=== PATIENT | male | born 1950 | race Caucasian/White ===

== ENCOUNTER → 2017-11-29 | Outpatient (CLI) | payer OTHER ==
[2017-11-29 12:05] LABS: Blood Urea Nitrogen 13 mg/dL (9-20)
--- NOTE | 2017-11-29 13:56 | CT ---
EXAMINATION TYPE: CT ChestAbdPelvis w con DATE OF EXAM: 11/29/2017 COMPARISON: 09/21/2017 HISTORY: Follow up of lung cancer. Treatment with radiation and chemotherapy in September 2017. CT DLP: 646.8 mGycm. Automated Exposure Control for Dose Reduction was Utilized. CONTRAST: CT scan of the thorax, abdomen and pelvis is performed with IV Contrast, patient injected with 100 mL of Isovue 300. FINDINGS: LUNGS: There is decrease in size of the previously identified centrally cavitary left upper lobe pulm onary mass abutting the pleural surface and extending into the left perihilar region. When measured i n a similar location to the prior exam on series 4 image 28 this measures up to 6.5 x 8.3 cm and prev iously measured up to 6.6 x 10.8 cm. Again there are innumerable adjacent satellite pulmonary nodules predominating within the left upper lobe extending from series 4 image 19 through the lingula 2 seri es 4 image 45. Solitary right lower lobe pulmonary nodule has decreased in size and series 4 image 46 retrospectively seen on series 5 image 105 on the prior exam. MEDIASTINUM: The degree of previously seen extensive left perihilar and mediastinal adenopathy has al so decreased from the prior with the largest conglomeration previously measured 3.1 x 2.5 cm on serie s 4 image 56 on the prior exam now measuring approximately 2.9 x 1.9 cm on series 3 image 26. Enlarge d subcarinal lymph node measures up to 2.3 cm. Moderate to severe three-vessel coronary artery calcif ications are noted. There is no evidence of cardiomegaly or pericardial effusion. LIVER/GB: There is redemonstration of multiple hepatic metastases. Given the phase of contrast on the prior exam and these were poorly defined in comparison and size is difficult to accurately measure. The largest on today's examination measures up to 2.1 x 2.3 cm in segment 7 on series 3 image 58. PANCREAS: No significant abnormality is seen. SPLEEN: No significant abnormality is seen. ADRENALS: A left adrenal gland mass has also slightly decreased in size previously measured up to 8.7 cm and currently measuring up to 7.8 x 6.4 cm. Right adrenal gland thickening without discrete measu rable nodule is also again seen. KIDNEYS: Left upper pole renal cyst measures 1.3 cm. No hydronephrosis or nephrolithiasis. Too small to accurately characterize probable right anterior cortical midpole renal cyst is also present. BOWEL: Descending duodenal lipoma is incidentally noted inferior to the uncinate process. GENITAL ORGANS: No gross abnormality seen. LYMPH NODES: No greater than 1cm abdominal or pelvic lymph nodes are appreciated. OSSEOUS STRUCTURES: Sclerotic right ischial lesion measures 4 mm. This could represent a benign bone island. Moderate degenerative changes of the femoral acetabular joints are seen as well as likely deg enerative sclerosis of the sacroiliac joints. Prior healed left posterior lateral rib fractures are n oted. Sclerotic foci of the T11 and T9 vertebral bodies are most likely degenerative as they're cory guous with the endplates and unchanged from the prior. OTHER: There is fusiform ectasia of the infrarenal abdominal aorta measuring up to 2.6 x 2.8 cm with severe calcific and noncalcific atheromatous plaquing. IMPRESSION: Findings indicating overall response to treatment with decreased size in the primary left upper lobe cavitary pulmonary mass although there is persistence of innumerable satellite pulmonary nodules, dec rease in size of the left adrenal gland mass, improvement in mediastinal adenopathy and decrease in s ize of the solitary right pulmonary nodule. Multiple metastatic hepatic lesions are also seen althoug h comparison in size and number with the prior exam is difficult due to phase of contrast on the exam of 09/21/2017.
== END | disposition home or self-care (01) ==
LOC: RADCTMAIN 10:49
PROVIDERS: ATTEND Internal Medicine Hematology & Oncology
DX: C34.32 Malignant neoplasm of lower lobe, left bronchus or lung (principal); Z88.8 Allergy status to other drugs, medicaments and biological substances
CPT/HCPCS: 82565; 84520; 71260; 74177; 36415; Q9967

== ENCOUNTER → 2017-12-07 | Outpatient (CLI) | payer OTHER ==
--- NOTE | 2017-12-07 12:56 | FL ---
EXAMINATION TYPE: FL barium swallow w video DATE OF EXAM: 12/07/2017 MODIFIED SWALLOW / DEGLUTITION STUDY CLINICAL HISTORY: Progressively worsening dysphagia. History of pneumonia and chemotherapy for lung c ancer. Weight loss. TECHNIQUE: Deglutition study is performed utilizing thin liquid barium, honey and nectar thick liqui d barium, barium thick applesauce, and barium coated cracker. 57 sec fluoroscopy time was utilized wi th 0 images saved as this was video recorded. COMPARISON: None. FINDINGS: The oral and pharyngeal phases show satisfactory initiation and propagation with all modali ties tested. Normal mastication is seen with solid modalities tested. Repeat penetration was apprec iated with the thin barium consistency, improved with the chin tuck maneuver. There is no evidence of penetration or aspiration with the remaining modalities tested. No significant pharyngeal residue w as appreciated. IMPRESSION: Persistent penetration with the thin liquid consistency improved with the chin tuck maneu yeny. Please refer to speech therapist notes for further details if necessary.
== END | disposition home or self-care (01) ==
LOC: RADFLMAIN 11:17
PROVIDERS: ATTEND Otolaryngology
DX: R13.10 Dysphagia, unspecified (principal)
CPT/HCPCS: 74230

== ENCOUNTER 2018-01-24 21:31 | Inpatient (IN) | payer OTHER, MEDICARE ==
[2018-01-24] MEDS ORDERED: SODIUM CHLORIDE 0.9% 1,000 ML IV ONE (21:42)
--- NOTE | 2018-01-24 21:45 | ED ---
Altered Mental Status HPI - General Chief Complaint: Altered Mental Status Stated Complaint: LETHARGIC Time Seen by Provider: 01/24/18 21:31 Source: patient, family, EMS, RN notes reviewed Mode of arrival: EMS Limitations: no limitations - History of Present Illness Initial Comments: This is a 67-year-old with a history of stage IV lung cancer whose last chemo treatment was the first of this month was brought in by EMS after a call for confusion and altered mental status. He is found have a glucose of 40 he was given oral glucose by first responders repeat glucose is 120 is also noted have a pulse ox of 70 and 80% on room air he did not tolerate an updraft very well. He is feeling better he states MD Complaint: altered mental status, confusion, decreased responsiveness - Related Data Home Medications Medication Instructions Recorded Confirmed Albuterol Sulfate [Proair Hfa] 1 - 2 puff INHALATION RT-Q6H PRN 09/21/17 Aspirin 81 mg PO DAILY 09/21/17 01/24/18 Cholecalciferol [Vitamin D3] 1,000 unit PO DAILY 09/21/17 01/24/18 HYDROcodone/APAP 10-325MG [[place] 1 tab PO Q4H PRN 09/21/17 01/24/18 10-325] Meloxicam [Mobic] 15 mg PO DAILY PRN 09/21/17 01/24/18 Nitroglycerin Sl Tabs [Nitrostat] 0.4 mg SUBLINGUAL Q5M PRN 09/21/17 01/24/18 oxyCODONE-APAP 5-325MG [Percocet 1 tab PO Q4HR PRN 01/24/18 01/24/18 5-325 mg] Allergies Allergy/AdvReac Type Severity Reaction Status Date / Time No Known Allergies Allergy Verified 01/24/18 22:27 Review of Systems ROS Statement: Those systems with pertinent positive or pertinent negative responses have been documented in the HPI. ROS Other: All systems not noted in ROS Statement are negative. Past Medical History Past Medical History: Coronary Artery Disease (CAD), Cancer, Chest Pain / Angina , GERD/Reflux, Hyperlipidemia Additional Past Medical History / Comment(s): L lung cancer with metastsis- received last radiation tx today, constipation. History of Any Multi-Drug Resistant Organisms: None Reported Past Surgical History: Heart Catheterization With Stent, Tonsillectomy Additional Past Surgical History / Comment(s): L lung bx x 2, bilateral inguinal hernia repairs, bilateral cataract removals with lens. Past Anesthesia/Blood Transfusion Reactions: No Reported Reaction Date of Last Stent Placement:: 2002 Past Psychological History: No Psychological Hx Reported Smoking Status: Current every day smoker Past Alcohol Use History: Occasional Past Drug Use History: None Reported - Past Family History Father Family Medical History: Diabetes Mellitus Mother Additional Family Medical History / Comment(s): Mother had lupus. General Exam - General Exam Comments Initial Comments: This is a well-developed asthenic appearing male who is awake and alert Limitations: no limitations General appearance: alert, in no apparent distress Head exam: Present: atraumatic, normocephalic, normal inspection Eye exam: Present: normal appearance, PERRL, EOMI. Absent: scleral icterus, conjunctival injection, periorbital swelling ENT exam: Present: mucous membranes dry Neck exam: Present: normal inspection. Absent: tenderness, meningismus, lymphadenopathy Respiratory exam: Present: rhonchi, decreased breath sounds. Absent: respiratory distress, wheezes, rales, stridor Cardiovascular Exam: Present: regular rate, normal rhythm, normal heart sounds. Absent: systolic murmur, diastolic murmur, rubs, gallop, clicks GI/Abdominal exam: Present: soft, normal bowel sounds. Absent: distended, tenderness, guarding, rebound, rigid Extremities exam: Present: normal inspection, full ROM, normal capillary refill. Absent: tenderness, pedal edema, joint swelling, calf tenderness Back exam: Present: normal inspection Neurological exam: Present: alert, oriented X3, CN II-XII intact Psychiatric exam: Present: normal affect, normal mood Skin exam: Present: warm, dry, intact, normal color. Absent: rash Course Vital Signs 01/24/18 01/24/18 01/24/18 21:33 21:58 23:40 Temperature 99.1 F Pulse Rate 85 92 Respiratory 26 H 24 Rate Blood Pressure 112/58 101/59 O2 Sat by Pulse 95 97 Oximetry - Reevaluation(s) Reevaluation #1: 01/25/18 00:30 The current EKG was compared with previous EKGs dated 09/21/17 and also 09/22/17 similar configuration as are noted. Medical Decision Making - Medical Decision Making I did reevaluate patient is feeling somewhat better though he is very tired. I had a discussion with patient family members regarding the findings patient be admitted the patient does have low-grade temperature it is unclear whether this is secondary to an infectious process versus tumor. Patient will be admitted with consultation by both cardiology and oncology. - Lab Data Result diagrams: 01/24/18 21:50 01/24/18 21:50 Lab Results 01/24/18 01/24/18 01/24/18 Range/Units 21:49 21:50 21:50 WBC 3.3 L (3.8-10.6) k/uL RBC 2.56 L (4.30-5.90) m/uL Hgb 8.2 L (13.0-17.5) gm/dL Hct 24.4 L (39.0-53.0) % MCV 95.2 (80.0-100.0) fL MCH 32.0 (25.0-35.0) pg MCHC 33.5 (31.0-37.0) g/dL RDW 21.6 H (11.5-15.5) % Plt Count 202 (150-450) k/uL Neutrophils % (Manual) 51 % Band Neutrophils % 12 % Lymphocytes % (Manual) 33 % Monocytes % (Manual) 5 % Neutrophils # (Manual) 2.00 (1.3-7.7) k/uL Lymphocytes # (Manual) 1.09 (1.0-4.8) k/uL Monocytes # (Manual) 0.17 (0-1.0) k/uL Nucleated RBCs 0 (0-0) /100 WBC Manual Slide Review Performed Reactive Lymphocytes Present Hypochromasia Slight Poikilocytosis Slight Anisocytosis Moderate Macrocytosis Slight PT (9.0-12.0) sec INR (<1.2) APTT (22.0-30.0) sec Sodium (137-145) mmol/L Potassium (3.5-5.1) mmol/L Chloride (98-107) mmol/L Carbon Dioxide (22-30) mmol/L Anion Gap mmol/L BUN (9-20) mg/dL Creatinine (0.66-1.25) mg/dL Est GFR (CKD-EPI)AfAm (>60 ml/min/1.73 sqM) Est GFR (CKD-EPI)NonAf (>60 ml/min/1.73 sqM) Glucose (74-99) mg/dL POC Glucose (mg/dL) 94 (75-99) mg/dL POC Glu Certification Engineer ID [place], Flex Calcium (8.4-10.2) mg/dL Total Bilirubin (0.2-1.3) mg/dL AST (17-59) U/L ALT (21-72) U/L Alkaline Phosphatase (38-126) U/L Total Creatine Kinase 203 H (55-170) U/L CK-MB (CK-2) 1.9 (0.0-2.4) ng/mL CK-MB (CK-2) Rel Index 0.9 Troponin I 0.198 H* (0.000-0.034) ng/mL Total Protein (6.3-8.2) g/dL Albumin (3.5-5.0) g/dL 01/24/18 01/24/18 Range/Units 21:50 21:50 WBC (3.8-10.6) k/uL RBC (4.30-5.90) m/uL Hgb (13.0-17.5) gm/dL Hct (39.0-53.0) % MCV (80.0-100.0) fL MCH (25.0-35.0) pg MCHC (31.0-37.0) g/dL RDW (11.5-15.5) % Plt Count (150-450) k/uL Neutrophils % (Manual) % Band Neutrophils % % Lymphocytes % (Manual) % Monocytes % (Manual) % Neutrophils # (Manual) (1.3-7.7) k/uL Lymphocytes # (Manual) (1.0-4.8) k/uL Monocytes # (Manual) (0-1.0) k/uL Nucleated RBCs (0-0) /100 WBC Manual Slide Review Reactive Lymphocytes Hypochromasia Poikilocytosis Anisocytosis Macrocytosis PT 11.4 (9.0-12.0) sec INR 1.2 H (<1.2) APTT 20.7 L (22.0-30.0) sec Sodium 131 L (137-145) mmol/L Potassium 4.0 (3.5-5.1) mmol/L Chloride 90 L (98-107) mmol/L Carbon Dioxide 30 (22-30) mmol/L Anion Gap 11 mmol/L BUN 28 H (9-20) mg/dL Creatinine 0.60 L (0.66-1.25) mg/dL Est GFR (CKD-EPI)AfAm >90 (>60 ml/min/1.73 sqM) Est GFR (CKD-EPI)NonAf >90 (>60 ml/min/1.73 sqM) Glucose 84 (74-99) mg/dL POC Glucose (mg/dL) (75-99) mg/dL POC Glu Certification Engineer ID Calcium 10.6 H (8.4-10.2) mg/dL Total Bilirubin 0.5 (0.2-1.3) mg/dL AST 71 H (17-59) U/L ALT 36 (21-72) U/L Alkaline Phosphatase 166 H (38-126) U/L Total Creatine Kinase (55-170) U/L CK-MB (CK-2) (0.0-2.4) ng/mL CK-MB (CK-2) Rel Index Troponin I (0.000-0.034) ng/mL Total Protein 5.6 L (6.3-8.2) g/dL Albumin 2.8 L (3.5-5.0) g/dL - EKG Data -: EKG Interpreted by Me EKG shows normal: sinus rhythm (Sinus tachycardia rate 105 TN interval 118 QRS duration 150 QT since QTC 360/486 red bundle-branch block pattern nonspecific inferior changes) - Radiology Data Radiology results: report reviewed (I did review the imaging and reports increased left-sided pneumonic consolidation consistent with progression of tumor), image reviewed Critical Care Time Critical Care Time: Yes Critical Care Time: 37 minutes of critical care time which includes initial monitoring of the EMS run and discussed with paramedics history physical labs x-rays several reevaluation the patient discussed with patient's family and several occasions review of old charting documentation of the above Disposition Clinical Impression: Hypoglycemia, Lung cancer, lower lobe, Febrile illness, acute, Confusional state, Hypoxemia, Non-STEMI (non-ST elevated myocardial infarction) Disposition: ADMITTED IP TO THIS HOSP Condition: Stable Referrals: [facility],Clinic [Primary Care Provider] - 1-2 days
[2018-01-24 21:50] LABS: Glucose,Whole Blood 94 mg/dL (75-99)
[2018-01-24 22:17] LABS: ALT 36 U/L (21-72); AST 71 U/L (17-59); Albumin 2.8 g/dL (3.5-5.0); Alkaline Phosphatase 166 U/L (38-126); Anion Gap 11 mmol/L; Blood Urea Nitrogen 28 mg/dL (9-20); Calcium 10.6 mg/dL (8.4-10.2); Carbon Dioxide 30 mmol/L (22-30); Chloride 90 mmol/L (98-107); Glucose 84 mg/dL (74-99); Sodium 131 mmol/L (137-145); Total Bilirubin 0.5 mg/dL (0.2-1.3); Total Protein 5.6 g/dL (6.3-8.2)
[2018-01-24 22:22] LABS: INR 1.2 (<1.2); Prothrombin Time 11.4 sec (9.0-12.0)
[2018-01-24 22:24] LABS: Anisocytosis Moderate; HCT 24.4 % (39.0-53.0); HGB 8.2 gm/dL (13.0-17.5); Hypochromasia Slight; MCHC 33.5 g/dL (31.0-37.0); MCV 95.2 fL (80.0-100.0); Macrocytosis Slight; Mean Platelet Volume 7.9; Platelet Count 202 k/uL (150-450); Poikilocytosis Slight; RBC 2.56 m/uL (4.30-5.90); RDW 21.6 % (11.5-15.5); WBC 3.3 k/uL (3.8-10.6)
[2018-01-24 22:34] LABS: Partial Thromboplastin Time 20.7 sec (22.0-30.0)
[2018-01-24 22:37] LABS: Creatine Kinase MB 1.9 ng/mL (0.0-2.4)
--- NOTE | 2018-01-24 22:38 | XR ---
EXAMINATION TYPE: XR chest 2V DATE OF EXAM: 01/24/2018 COMPARISON: September 21, 2017 HISTORY: Lung cancer TECHNIQUE: Frontal and lateral views of the chest are obtained. FINDINGS: There is 12 cm area of masslike consolidation involving the left upper lobe extending into the lingula left upper lobe. There is no heart failure. Right lung is clear. There is small infiltra te in the left lower lobe at the lung bases. Bony thorax is intact. There are chest leads. There are old left-sided healed rib fractures. IMPRESSION: Increasing left side pneumonic consolidation consistent with progression of tumor. No he art failure.
[2018-01-24 22:41] LABS: Troponin I 0.198 ng/mL (0.000-0.034)
[2018-01-24 22:54] LABS: Band Neutrophils % 12 %; Lymphocytes # (M) 1.09 k/uL (1.0-4.8); Monocytes # (M) 0.17 k/uL (0-1.0); Neutrophils % (M) 51 %; Nucleated Red Blood Cells 0 /100 WBC (0-0); Reactive Lymphocytes Present; Total Cells Counted 200
[2018-01-25] MEDS ORDERED: HEPARIN SODIUM,PORCINE 5,000 UNIT/ML 1 ML VIAL IV ONE (00:58)
[2018-01-25] MEDS ORDERED: NITROGLYCERIN SL TABS 0.4 MG TAB SUBLINGUAL PRN (00:58)
[2018-01-25] MEDS ORDERED: MELOXICAM 7.5 MG TAB PO PRN (01:03)
[2018-01-25] MEDS ORDERED: oxyCODONE-APAP 5-325MG 1 EACH TAB PO PRN (01:03)
[2018-01-25] MEDS ORDERED: HEPARIN SODIUM,PORCINE/D5W PMX 25,000 UNIT in DEXTROSE/WATER 1 500ML.BAG IV SCH (01:30)
[2018-01-25] MEDS: SODIUM CHLORIDE 0.9% 1,000 ML IV SCH ×4 (01:43→21:51)
[2018-01-25 01:56] LABS: Appearance,Urine Clear (Clear); Bilirubin,Urine Negative (Negative); Blood,Urine Negative (Negative); Color,Urine Yellow; Glucose,Urine (UA) Negative (Negative); Ketones,Urine Negative (Negative); Leukocyte Esterase,Urine Negative (Negative); Nitrite,Urine Negative (Negative); PH, Urine 5.5 (5.0-8.0); Protein,Urine Trace (Negative); Specific Gravity,Urine 1.015 (1.001-1.035); Urobilinogen,Urine <2.0 mg/dL (<2.0)
[2018-01-25] MEDS ORDERED: IPRATROPIUM-ALBUTEROL 3 ML NEB INHALATION SCH (04:00)
[2018-01-25 04:33] LABS: Creatine Kinase MB 1.5 ng/mL (0.0-2.4)
[2018-01-25 04:34] LABS: Troponin I 0.178 ng/mL (0.000-0.034)
[2018-01-25] MEDS: NITROGLYCERIN OINT 1 INCH/GM PACKET TOPICAL SCH ×3 (06:58→18:19)
[2018-01-25] MEDS: IPRATROPIUM-ALBUTEROL 3 ML NEB INHALATION SCH ×5 (07:29→19:46)
[2018-01-25] MEDS ORDERED: HEPARIN SODIUM,PORCINE 5,000 UNIT/ML 1 ML VIAL SQ STA (09:21)
[2018-01-25 09:33] LABS: Glucose,Whole Blood 101 mg/dL (75-99)
[2018-01-25] MEDS: CEFEPIME 2 GM in SODIUM CHLORIDE 0.9% 50 ML IVPB SCH ×3 (09:33→23:27)
[2018-01-25] MEDS: CHOLECALCIFEROL 1,000 UNIT TAB PO SCH (09:33)
[2018-01-25] MEDS ORDERED: HEPARIN SODIUM,PORCINE 5,000 UNIT/ML 1 ML VIAL IV STA (09:39)
[2018-01-25 10:11] LABS: Anisocytosis Moderate; HCT 20.8 % (39.0-53.0); Hypochromasia Slight; MCHC 32.8 g/dL (31.0-37.0); MCV 94.3 fL (80.0-100.0); Macrocytosis Slight; Mean Platelet Volume 8.1; Platelet Count 183 k/uL (150-450); Poikilocytosis Slight; RDW 20.8 % (11.5-15.5)
[2018-01-25 10:22] LABS: ALT 31 U/L (21-72); AST 50 U/L (17-59); Albumin 2.2 g/dL (3.5-5.0); Alkaline Phosphatase 125 U/L (38-126); Anion Gap 8 mmol/L; Blood Urea Nitrogen 19 mg/dL (9-20); Calcium 9.7 mg/dL (8.4-10.2); Carbon Dioxide 28 mmol/L (22-30); Chloride 96 mmol/L (98-107); Glucose 85 mg/dL (74-99); Potassium 3.1 mmol/L (3.5-5.1); Sodium 132 mmol/L (137-145); Total Bilirubin 0.3 mg/dL (0.2-1.3); Total Protein 4.6 g/dL (6.3-8.2)
[2018-01-25 10:25] LABS: WBC 1.6 k/uL (3.8-10.6)
[2018-01-25 10:26] LABS: HGB 6.8 gm/dL (13.0-17.5)
[2018-01-25 10:46] LABS: Creatine Kinase MB 0.7 ng/mL (0.0-2.4)
[2018-01-25 10:53] LABS: Troponin I 0.133 ng/mL (0.000-0.034)
[2018-01-25] MEDS ORDERED: ONDANSETRON 4 MG/2 ML VIAL IVP STA (11:30)
[2018-01-25] MEDS: HYDROcodone/APAP 10-325MG 1 EACH TAB PO PRN ×2 (12:01→18:31)
[2018-01-25 12:18] LABS: Band Neutrophils % 4 %; Lymphocytes # (M) 0.29 k/uL (1.0-4.8); Monocytes # (M) 0.46 k/uL (0-1.0); Neutrophils % (M) 49 %; Nucleated Red Blood Cells 0 /100 WBC (0-0); Total Cells Counted 100
[2018-01-25] MEDS ORDERED: SODIUM CHLORIDE 0.9% 800 ML IV ONE (14:05)
[2018-01-25 14:43] LABS: Glucose,Whole Blood 118 mg/dL (75-99)
--- NOTE | 2018-01-25 15:51 | P.CRDCN ---
History of Present Illness Consult date: 01/25/18 Requesting physician: Jossy Workman Reason for Consult (text): Abnormal troponins Chief complaint: Mental status change History of present illness: This is a 67-year-old gentleman who follows regularly at the [facility] in [place], he has known history of coronary artery disease with prior stenting in 2002, hypertension, hyperlipidemia, GERD, nicotine dependence, patient also has lung cancer for which he underwent radiation therapy, he was also undergoing chemotherapy, most recently he was told by his oncologist that no further chemotherapy would be administered as it does not seem to be taking effect. Patient was brought to the hospital via EMS with mental status changes. According to the daughter who gave me most of the history, she states that for the past day and a half prior to his admission she had been calling intact stenting him with no response. She went over to the house to find him sitting in a chair, she was unsure exactly of bilateral long he had been there, he was confused and had some mental status changes and for this reason she called EMS to have him brought here to the hospital. On EMS arrival, his blood sugar was in the 40 range, it was repeated after giving glucose and came up to 120. Pulse ox 70-80% on room air. The pressure on arrival here 112/58 with a heart rate in the 80s, 97% on 4 L of oxygen. EKG on arrival here showed a sinus tachycardia with a right bundle branch block pattern. Laboratory data, white blood cell count 3.3, 1.6 this morning, hemoglobin 8.2 on arrival, 6.8 this morning. Platelet count 183. Sodium 132, potassium 4.1 on arrival, 3.1 this morning. BUN 19, creatinine 0.45. Troponin 0.19, 0.17, 0.13. At the time of my examination, patient has just recently been placed into her room on 6 E., he is receiving a blood transfusion. He only intermittently is answering questions, he is quite irritated and generally feeling tired and not well. Patient was in the hospital in September of this year with a pneumonia, and echocardiogram with Doppler study was performed at that time which revealed an ejection fraction of 55-60%. Past Medical History Past Medical History: Coronary Artery Disease (CAD), Cancer, Chest Pain / Angina , GERD/Reflux, Hyperlipidemia, Pneumonia Additional Past Medical History / Comment(s): L lung cancer with metastsis- received radiation last 09/21/17 and is receiving chemo-last time 01/13/18, constipation, pt states hx of hyperlipidemia but recently taken of RX, constipation. History of Any Multi-Drug Resistant Organisms: None Reported Past Surgical History: Heart Catheterization With Stent, Tonsillectomy Additional Past Surgical History / Comment(s): L lung bx x 2, bilateral inguinal hernia repairs, bilateral cataract removals with lens. Past Anesthesia/Blood Transfusion Reactions: No Reported Reaction Date of Last Stent Placement:: 2002 Smoking Status: Current every day smoker - Past Family History Father Family Medical History: Diabetes Mellitus Mother Additional Family Medical History / Comment(s): Mother had lupus. Medications and Allergies Home Medications Medication Instructions Recorded Confirmed Type Albuterol Sulfate [Proair Hfa] 1 - 2 puff INHALATION RT-Q6H PRN 09/21/17 History Aspirin 81 mg PO DAILY 09/21/17 01/24/18 History Cholecalciferol [Vitamin D3] 1,000 unit PO DAILY 09/21/17 01/24/18 History HYDROcodone/APAP 10-325MG [[place] 1 tab PO Q4H PRN 09/21/17 01/24/18 History 10-325] Meloxicam [Mobic] 15 mg PO DAILY PRN 09/21/17 01/24/18 History Nitroglycerin Sl Tabs [Nitrostat] 0.4 mg SUBLINGUAL Q5M PRN 09/21/17 01/24/18 History oxyCODONE-APAP 5-325MG [Percocet 1 tab PO Q4HR PRN 01/24/18 01/24/18 History 5-325 mg] Allergies Allergy/AdvReac Type Severity Reaction Status Date / Time No Known Allergies Allergy Verified 01/24/18 22:27 Physical Exam Vitals: Vital Signs Temp Pulse Pulse Resp BP BP Pulse Ox 01/25/18 14:53 97.9 F 79 18 98/56 98 01/25/18 14:18 98.0 F 85 18 93/55 98 01/25/18 14:06 98 18 73/45 92 L 01/25/18 13:55 98.0 F 96 18 77/45 95 01/25/18 13:36 97.9 F 18 80/53 98 01/25/18 13:25 97.6 F 100 18 86/53 01/25/18 11:57 89 01/25/18 11:47 82 01/25/18 09:11 98.0 F 88 18 99/57 97 01/25/18 07:37 85 01/25/18 07:29 93 01/25/18 06:55 96 22 104/58 96 01/25/18 05:37 92 18 98/54 96 01/25/18 02:31 99 20 94/52 95 01/24/18 23:40 92 24 101/59 97 01/24/18 21:58 95 01/24/18 21:33 99.1 F 85 26 H 112/58 Intake and Output 01/25/18 01/25/18 01/25/18 06:59 14:59 22:59 Intake Total 177.028 Balance 177.028 Intake: Intake, IV Titration 177.028 Amount Heparin Sodium,Porcine/ 177.028 D5w Pmx 25,000 unit In Dextrose/Water 1 500ml. bag @ 12 UNITS/KG/HR 16. 32 mls/hr IV .Q24H [facility] Rx #:[id number] Blood Product 0 Rc As-1 Unit 0 [id number] PHYSICAL EXAMINATION: GENERAL: 67-year-old gentleman appears much older than his stated age , weak HEENT: Head is atraumatic, normocephalic. Pupils equal, round. Sclera anicteric. Conjunctiva are clear. Mucous membranes of the mouth are moist. Neck is supple. There is no elevated jugular venous pressure.] bruit is heard. HEART EXAMINATION: Heart S1, S2 normal. No murmur or gallop heard. CHEST EXAMINATION: Lungs reveal scattered coarse rhonchi and wheezing throughout. ABDOMEN: Soft, nontender. Bowel sounds are heard. No organomegaly noted. EXTREMITIES: 2+ peripheral pulses with no evidence of peripheral edema and no calf tenderness noted. NEUROLOGIC [patient is sleepy, arouses to verbal stimuli. Results 01/25/18 09:43 01/25/18 09:43 Cardiac Enzymes 01/24/18 01/24/18 01/25/18 Range/Units 21:50 21:50 03:39 AST 71 H (17-59) U/L CK-MB (CK-2) 1.9 1.5 (0.0-2.4) ng/mL Troponin I 0.198 H* 0.178 H* (0.000-0.034) ng/mL 01/25/18 01/25/18 Range/Units 09:43 09:43 AST 50 (17-59) U/L CK-MB (CK-2) 0.7 (0.0-2.4) ng/mL Troponin I 0.133 H* (0.000-0.034) ng/mL Coagulation 01/24/18 01/25/18 Range/Units 21:50 08:13 PT 11.4 (9.0-12.0) sec APTT 20.7 L 36.9 H (22.0-30.0) sec CBC 01/24/18 01/25/18 Range/Units 21:50 09:43 WBC 3.3 L 1.6 L* (3.8-10.6) k/uL RBC 2.56 L 2.20 L (4.30-5.90) m/uL Hgb 8.2 L 6.8 L* (13.0-17.5) gm/dL Hct 24.4 L 20.8 L (39.0-53.0) % Plt Count 202 183 (150-450) k/uL Comprehensive Metabolic Panel 01/24/18 01/25/18 Range/Units 21:50 09:43 Sodium 131 L 132 L (137-145) mmol/L Potassium 4.0 3.1 L (3.5-5.1) mmol/L Chloride 90 L 96 L (98-107) mmol/L Carbon Dioxide 30 28 (22-30) mmol/L BUN 28 H 19 (9-20) mg/dL Creatinine 0.60 L 0.45 L (0.66-1.25) mg/dL Glucose 84 85 (74-99) mg/dL Calcium 10.6 H 9.7 (8.4-10.2) mg/dL AST 71 H 50 (17-59) U/L ALT 36 31 (21-72) U/L Alkaline Phosphatase 166 H 125 (38-126) U/L Total Protein 5.6 L 4.6 L (6.3-8.2) g/dL Albumin 2.8 L 2.2 L (3.5-5.0) g/dL Current Medications Generic Name Dose Route Start Last Admin Trade Name Freq PRN Reason Stop Dose Admin Hydrocodone Bitart/Acetaminophen 1 each 01/25/18 01:03 01/25/18 12:01 [place] 10 PO 1 each Q4H PRN Administration MODERATE Pain Albuterol/Ipratropium 3 ml 01/25/18 08:00 01/25/18 15:31 Duoneb 0.5 Mg-3 Mg/3 Ml Soln INHALATION Not Given RT-QID [facility] Aspirin 325 mg 01/26/18 09:00 Aspirin PO DAILY [facility] Cholecalciferol 1,000 unit 01/25/18 09:00 01/25/18 09:33 Vitamin D3 PO 1,000 unit DAILY [facility] Administration Cefepime HCl 2 gm/ Sodium 50 mls @ 100 mls/hr 01/25/18 08:00 01/25/18 09:33 Chloride IVPB 100 mls/hr Q8HR IVONE Administration Sodium Chloride 1,000 mls @ 80 mls/hr 01/25/18 01:00 01/25/18 13:40 Saline 0.9% IV 80 mls/hr .[id number] [facility] Administration Meloxicam 15 mg 01/25/18 01:03 Mobic PO DAILY PRN MILD Pain Nitroglycerin 0.5 inch 01/25/18 06:00 01/25/18 13:40 Nitro-Bid Oint TOPICAL Not Given Q6HR [facility] Nitroglycerin 0.4 mg 01/25/18 00:58 Nitrostat SUBLINGUAL Q5M PRN Chest Pain Oxycodone/Acetaminophen 1 each 01/25/18 01:03 Percocet 5-325 PO Q4HR PRN SEVERE Pain Intake and Output 01/25/18 01/25/18 01/25/18 06:59 14:59 22:59 Intake Total 177.028 Balance 177.028 Intake: Intake, IV Titration 177.028 Amount Heparin Sodium,Porcine/ 177.028 D5w Pmx 25,000 unit In Dextrose/Water 1 500ml. bag @ 12 UNITS/KG/HR 16. 32 mls/hr IV .Q24H [facility] Rx #:[id number] Blood Product 0 Rc As-1 Unit 0 [id number] 01/25/18 09:43 01/25/18 09:43 EKG Interpretations (text) EKG shows sinus tachycardia with a right bundle branch block pattern. Nonspecific ST-T wave changes Assessment and Plan Plan: Assessment and plan #1 mental status changes #2 stage IV lung cancer, status post radiation, most recently patient's chemotherapy was discontinued by his oncologist. Patient did have a metastases noted to the liver and adrenal gland on most recent admission #3 anemia, hemoglobin down to 6.8, patient currently receiving a blood transfusion #4 known history of coronary artery disease with prior stent placement #5 nicotine dependence #6 hyperlipidemia #7 abnormal troponins, likely secondary to oxygen supply and demand mismatch Plan IV heparin has been discontinued, patient had a recent echo performed in September of this year which revealed an ejection fraction of 55-60%. He is currently receiving a blood transfusion. We will decrease the aspirin 81 mg daily, discontinue Nitropaste. Patient is currently not on beta dacia SG inhibitor because of hypotension, blood pressure down into the 70s in the emergency room prior to transfer.. Conservative medical therapy. Further recommendations to follow. DNP note has been reviewed, I agree with a documented findings and plan of care. Patient was seen and examined.
[2018-01-25 16:08] LABS: Glucose,Whole Blood 118 mg/dL (75-99)
--- NOTE | 2018-01-25 16:53 | P.HPIM ---
History of Present Illness 67-year-old pleasant gentleman came in with altered mental status patient is quite weak at home lying on the chair and family was concerned after he was unable to answer the phone because of which patient was brought into the hospital and patient is found to be hypoxic with saturations going to 80s patient is presently on Tuesday dysfunction does have history of COPD is not in COPD exacerbation patient denied any chest pain denied any nausea vomiting patient does have mild elevated troponin patient is quite anemic patient received chemotherapy earlier this month. Patient appears to have been receiving palliative chemotherapy for non-small cell lung cancer chest x-ray did not show any significant pneumonic process but may have postobstructive pneumonia and increasing mass in the left lower lung monge. There is no pulmonary edema. Patient is receiving blood transfusion his hemoglobin is presently 6.7 he denied any blood in the stools dark stools hemoptysis patient the platelet count is okay but the patient is leukopenic with white blood cell count going down from 3.3-1.6 doesn't have any fever patient is hyponatremic receiving IV fluids probably intravascular volume depletion hypokalemic potassium is being supplemented. Patient was hypotensive with blood pressure going down to 70s systolic received a couple units of boluses of IV fluids and is presently on 100 mL of normal saline. With blood pressure going up to 90 systolic. Patient is also receiving blood transfusion. Patient is not in COPD exacerbation although chest x-ray showed significant emphysema may have undiagnosed COPD patient doesn't use any oxygen at home but feels short of breath often at home since I cannot completely explain his shortness of breath I wanted to review CT angios the chest discussed his case with the oncology nurse practitioner and every came to the conclusion that he will need further workup with the CAT scans of the whole body this is a progression of his lung cancer because of that reason I'm ordering CT past of chest abdomen and pelvis thereby decision regarding his prognosis can be made. I discussed his CODE STATUS patient cannot make patient whether he wanted to be DO NOT RESUSCITATE or full code for now we'll consider him as a full code. After discussing the outcomes of resuscitation patient wanted to discuss with the family regarding his CODE STATUS. Oncology was consulted for prognostication purposes. Review of Systems REVIEW OF SYSTEMS: CONSTITUTIONAL: No fever, HEENT: No recent visual problems or hearing problems. Denied any sore throat. CARDIOVASCULAR: No chest pain, orthopnea, PND, no palpitations, no syncope. PULMONARY: no hemoptysis. GASTROINTESTINAL: No diarrhea, no nausea, no vomiting, no abdominal pain. Normoactive bowel sounds. NEUROLOGICAL: No headaches, no weakness, no numbness. HEMATOLOGICAL: Denies any bleeding or petechiae. GENITOURINARY: Denies any burning micturition, frequency, or urgency. MUSCULOSKELETAL/RHEUMATOLOGICAL: Denies any joint pain, swelling, or any muscle pain. ENDOCRINE: Denies any polyuria or polydipsia. The rest of the 14-point review of systems is negative. Past Medical History Past Medical History: Coronary Artery Disease (CAD), Cancer, Chest Pain / Angina , GERD/Reflux, Hyperlipidemia, Pneumonia Additional Past Medical History / Comment(s): L lung cancer with metastsis- received radiation last 09/21/17 and is receiving chemo-last time 01/13/18, constipation, pt states hx of hyperlipidemia but recently taken of RX, constipation. History of Any Multi-Drug Resistant Organisms: None Reported Past Surgical History: Heart Catheterization With Stent, Tonsillectomy Additional Past Surgical History / Comment(s): L lung bx x 2, bilateral inguinal hernia repairs, bilateral cataract removals with lens. Past Anesthesia/Blood Transfusion Reactions: No Reported Reaction Date of Last Stent Placement:: 2002 Smoking Status: Current every day smoker - Past Family History Father Family Medical History: Diabetes Mellitus Mother Additional Family Medical History / Comment(s): Mother had lupus. Medications and Allergies Home Medications Medication Instructions Recorded Confirmed Type Albuterol Sulfate [Proair Hfa] 1 - 2 puff INHALATION RT-Q6H PRN 09/21/17 History Aspirin 81 mg PO DAILY 09/21/17 01/24/18 History Cholecalciferol [Vitamin D3] 1,000 unit PO DAILY 09/21/17 01/24/18 History HYDROcodone/APAP 10-325MG [[place] 1 tab PO Q4H PRN 09/21/17 01/24/18 History 10-325] Meloxicam [Mobic] 15 mg PO DAILY PRN 09/21/17 01/24/18 History Nitroglycerin Sl Tabs [Nitrostat] 0.4 mg SUBLINGUAL Q5M PRN 09/21/17 01/24/18 History oxyCODONE-APAP 5-325MG [Percocet 1 tab PO Q4HR PRN 01/24/18 01/24/18 History 5-325 mg] Allergies Allergy/AdvReac Type Severity Reaction Status Date / Time No Known Allergies Allergy Verified 01/24/18 22:27 Physical Exam Vitals: Vital Signs Temp Pulse Pulse Resp BP BP Pulse Ox 01/25/18 14:53 97.9 F 79 18 98/56 98 01/25/18 14:18 98.0 F 85 18 93/55 98 01/25/18 14:06 98 18 73/45 92 L 01/25/18 13:55 98.0 F 96 18 77/45 95 01/25/18 13:36 97.9 F 18 80/53 98 01/25/18 13:25 97.6 F 100 18 86/53 01/25/18 11:57 89 01/25/18 11:47 82 01/25/18 09:11 98.0 F 88 18 99/57 97 01/25/18 07:37 85 01/25/18 07:29 93 01/25/18 06:55 96 22 104/58 96 01/25/18 05:37 92 18 98/54 96 01/25/18 02:31 99 20 94/52 95 01/24/18 23:40 92 24 101/59 97 01/24/18 21:58 95 01/24/18 21:33 99.1 F 85 26 H 112/58 Intake and Output 01/25/18 01/25/18 01/25/18 06:59 14:59 22:59 Intake Total 177.028 Balance 177.028 Intake: Intake, IV Titration 177.028 Amount Heparin Sodium,Porcine/ 177.028 D5w Pmx 25,000 unit In Dextrose/Water 1 500ml. bag @ 12 UNITS/KG/HR 16. 32 mls/hr IV .Q24H [facility] Rx #:[id number] Blood Product 0 Rc As-1 Unit 0 [id number] Other: # Voids 1 PHYSICAL EXAMINATION: GENERAL: The patient is alert and oriented x3, not in any acute distress. Thin built K Geck take secondary to cancer cachexia HEENT: Pupils are round and equally reacting to light. EOMI. No scleral icterus. No conjunctival pallor. Normocephalic, atraumatic. No pharyngeal erythema. No thyromegaly. CARDIOVASCULAR: S1 and S2 present. No murmurs, rubs, or gallops. PULMONARY: Chest is clear to auscultation, no wheezing or crackles. ABDOMEN: Soft, nontender, nondistended, normoactive bowel sounds. No palpable organomegaly. MUSCULOSKELETAL: No joint swelling or deformity. EXTREMITIES: No cyanosis, clubbing, or pedal edema. NEUROLOGICAL: No focal deficits but patient does have severe generalized weakness SKIN: No rashes. Results CBC & Chem 7: 01/25/18 09:43 01/25/18 09:43 Labs: Abnormal Lab Results - Last 24 Hours (Table) 01/24/18 01/24/18 01/24/18 Range/Units 21:50 21:50 21:50 WBC 3.3 L (3.8-10.6) k/uL RBC 2.56 L (4.30-5.90) m/uL Hgb 8.2 L (13.0-17.5) gm/dL Hct 24.4 L (39.0-53.0) % RDW 21.6 H (11.5-15.5) % Neutrophils # (Manual) (1.3-7.7) k/uL Lymphocytes # (Manual) (1.0-4.8) k/uL INR (<1.2) APTT (22.0-30.0) sec Sodium 131 L (137-145) mmol/L Potassium (3.5-5.1) mmol/L Chloride 90 L (98-107) mmol/L BUN 28 H (9-20) mg/dL Creatinine 0.60 L (0.66-1.25) mg/dL POC Glucose (mg/dL) (75-99) mg/dL Calcium 10.6 H (8.4-10.2) mg/dL AST 71 H (17-59) U/L Alkaline Phosphatase 166 H (38-126) U/L Total Creatine Kinase 203 H (55-170) U/L Troponin I 0.198 H* (0.000-0.034) ng/mL Total Protein 5.6 L (6.3-8.2) g/dL Albumin 2.8 L (3.5-5.0) g/dL Urine Protein (Negative) Crossmatch 01/24/18 01/25/18 01/25/18 Range/Units 21:50 01:47 03:39 WBC (3.8-10.6) k/uL RBC (4.30-5.90) m/uL Hgb (13.0-17.5) gm/dL Hct (39.0-53.0) % RDW (11.5-15.5) % Neutrophils # (Manual) (1.3-7.7) k/uL Lymphocytes # (Manual) (1.0-4.8) k/uL INR 1.2 H (<1.2) APTT 20.7 L (22.0-30.0) sec Sodium (137-145) mmol/L Potassium (3.5-5.1) mmol/L Chloride (98-107) mmol/L BUN (9-20) mg/dL Creatinine (0.66-1.25) mg/dL POC Glucose (mg/dL) (75-99) mg/dL Calcium (8.4-10.2) mg/dL AST (17-59) U/L Alkaline Phosphatase (38-126) U/L Total Creatine Kinase (55-170) U/L Troponin I 0.178 H* (0.000-0.034) ng/mL Total Protein (6.3-8.2) g/dL Albumin (3.5-5.0) g/dL Urine Protein Trace H (Negative) Crossmatch 01/25/18 01/25/18 01/25/18 Range/Units 08:13 09:05 09:43 WBC (3.8-10.6) k/uL RBC (4.30-5.90) m/uL Hgb (13.0-17.5) gm/dL Hct (39.0-53.0) % RDW (11.5-15.5) % Neutrophils # (Manual) (1.3-7.7) k/uL Lymphocytes # (Manual) (1.0-4.8) k/uL INR (<1.2) APTT 36.9 H (22.0-30.0) sec Sodium (137-145) mmol/L Potassium (3.5-5.1) mmol/L Chloride (98-107) mmol/L BUN (9-20) mg/dL Creatinine (0.66-1.25) mg/dL POC Glucose (mg/dL) 101 H (75-99) mg/dL Calcium (8.4-10.2) mg/dL AST (17-59) U/L Alkaline Phosphatase (38-126) U/L Total Creatine Kinase (55-170) U/L Troponin I 0.133 H* (0.000-0.034) ng/mL Total Protein (6.3-8.2) g/dL Albumin (3.5-5.0) g/dL Urine Protein (Negative) Crossmatch 01/25/18 01/25/18 01/25/18 Range/Units 09:43 09:43 10:51 WBC 1.6 L* (3.8-10.6) k/uL RBC 2.20 L (4.30-5.90) m/uL Hgb 6.8 L* (13.0-17.5) gm/dL Hct 20.8 L (39.0-53.0) % RDW 20.8 H (11.5-15.5) % Neutrophils # (Manual) 0.80 L (1.3-7.7) k/uL Lymphocytes # (Manual) 0.29 L (1.0-4.8) k/uL INR (<1.2) APTT (22.0-30.0) sec Sodium 132 L (137-145) mmol/L Potassium 3.1 L (3.5-5.1) mmol/L Chloride 96 L (98-107) mmol/L BUN (9-20) mg/dL Creatinine 0.45 L (0.66-1.25) mg/dL POC Glucose (mg/dL) (75-99) mg/dL Calcium (8.4-10.2) mg/dL AST (17-59) U/L Alkaline Phosphatase (38-126) U/L Total Creatine Kinase (55-170) U/L Troponin I (0.000-0.034) ng/mL Total Protein 4.6 L (6.3-8.2) g/dL Albumin 2.2 L (3.5-5.0) g/dL Urine Protein (Negative) Crossmatch See Detail 01/25/18 01/25/18 Range/Units 14:38 16:07 WBC (3.8-10.6) k/uL RBC (4.30-5.90) m/uL Hgb (13.0-17.5) gm/dL Hct (39.0-53.0) % RDW (11.5-15.5) % Neutrophils # (Manual) (1.3-7.7) k/uL Lymphocytes # (Manual) (1.0-4.8) k/uL INR (<1.2) APTT (22.0-30.0) sec Sodium (137-145) mmol/L Potassium (3.5-5.1) mmol/L Chloride (98-107) mmol/L BUN (9-20) mg/dL Creatinine (0.66-1.25) mg/dL POC Glucose (mg/dL) 118 H 118 H (75-99) mg/dL Calcium (8.4-10.2) mg/dL AST (17-59) U/L Alkaline Phosphatase (38-126) U/L Total Creatine Kinase (55-170) U/L Troponin I (0.000-0.034) ng/mL Total Protein (6.3-8.2) g/dL Albumin (3.5-5.0) g/dL Urine Protein (Negative) Crossmatch Thrombosis Risk Factor Assmnt - Choose All That Apply Any of the Below Risk Factors Present?: Yes Each Factor Represents 1 point: Acute MO Other Risk Factors: Yes Each Risk Factor Represents 2 Points: Age 61-74 years, Malignancy Other congenital or acquired thrombophilia - If yes, enter type in comment: No Thrombosis Risk Factor Assessment Total Risk Factor Score: 5 Thrombosis Risk Factor Assessment Level: High Risk Assessment and Plan Plan: -Altered mental status: Which resolved by the time I valid the patient patient may have metabolic encephalopathy. 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 I cannot completely rule out pulmonary embolism will obtain a CAT scan of the chest will rule out pulmonary embolism will also obtain CT abdomen and pelvis to see the extent of progression of the disease there by prognostication of his cancer can be done which will help is medications regarding palliative care, hospice. -Mildly elevated troponins: Secondary to hypoxemia -Hypotension secondary to severe intravascular depletion patient received IV bolus fluids patient will be continued on 100 mL of normal saline -Hyponatremia hypervolemic hyponatremia expected to improve with IV fluids -Dizziness secondary to severe anemia hypotension which is expected to improve with above measures -Coronary artery disease -Gastroesophageal reflux disease -Hyperlipidemia -History of non-small cell lung cancer receiving palliative chemotherapy. CODE STATUS unknown at this time
[2018-01-25] MEDS ORDERED: IOPAMIDOL-300 CONTRAST 30 ML VIAL (ORAL USE) PO ONE ×2 (17:10→18:10)
[2018-01-25] MEDS ORDERED: Potassium Replacement Protocol 1 EACH MISC MISCELLANE PRN (19:15)
--- NOTE | 2018-01-25 19:52 | CT ---
EXAMINATION TYPE: CT ChestAbdPelvis w con DATE OF EXAM: 01/25/2018 COMPARISON: 11/29/2017 HISTORY: History of lung cancer. Rule out PE and metastasis. CT DLP: 2560 mGycm Automated exposure control for dose reduction was used. CONTRAST: CT scan of the chest, abdomen and pelvis is performed with Oral Contrast and with IV Contrast, patien t injected with 100 mL of Isovue 300. FINDINGS: There is 14 x 10 cm area of masslike consolidation in the left midlung. There is enlarged subcarinal lymph node that measures 3.5 cm. There is mass density at the left pulmonary hilum. Thoracic aorta is atheromatous. There is mild pleural thickening at the lung bases. There is some infiltrate or atelec tasis at both lung bases. There are multiple hypodense masses throughout the liver. The largest is in the posterior right lobe and measures 7.5 cm. The bile ducts are not dilated. Spleen appears normal. There is 7.5 cm mass on t he left adrenal gland. There is no pancreatic mass. Gallbladder appears normal. Bile ducts are not di lated. Kidneys show satisfactory contrast opacification there is no hydronephrosis. There is 1 cm cortical c yst upper pole left kidney. There is no retropharyngeal adenopathy. Appendix appears normal. I see no intestinal wall thickening. There is minimal free fluid in the pelvis. Bladder distends smoothly. Th ere is no evidence of bowel obstruction. I see no filling defects in the pulmonary arteries. There is encasement of the left upper lobe pulmonary artery with reduced diameter. I see no focal bone destru ction. There is degenerative spurring in the thoracic and lumbar spine. IMPRESSION: Large mass in the left upper lobe is significantly increased compared to last CT scan and consistent with progression of tumor. There is subcarinal mass also increased. Multiple liver masses are increased compared to last exam and consistent with metastatic disease. Stable left adrenal mass . No pulmonary embolism seen.
[2018-01-25 20:47] LABS: Glucose,Whole Blood 107 mg/dL (75-99)
[2018-01-25] MEDS: POTASSIUM CHLORIDE ER 20 MEQ TAB.ER PO SCH ×2 (21:51→21:52)
[2018-01-26] MEDS: SODIUM CHLORIDE 0.9% 1,000 ML IV SCH ×2 (04:55→16:01)
[2018-01-26 06:05] LABS: Glucose,Whole Blood 90 mg/dL (75-99)
[2018-01-26] MEDS: IPRATROPIUM-ALBUTEROL 3 ML NEB INHALATION SCH ×4 (07:28→21:02)
[2018-01-26 07:40] LABS: Anisocytosis Moderate; HCT 32.1 % (39.0-53.0); Hypochromasia Slight; MCH 30.7 pg (25.0-35.0); MCHC 32.1 g/dL (31.0-37.0); MCV 95.7 fL (80.0-100.0); Macrocytosis Slight; Mean Platelet Volume 7.4; Platelet Count 214 k/uL (150-450); Poikilocytosis Slight; RBC 3.35 m/uL (4.30-5.90)
[2018-01-26 07:56] LABS: Anion Gap 8 mmol/L; Blood Urea Nitrogen 12 mg/dL (9-20); Calcium 9.9 mg/dL (8.4-10.2); Carbon Dioxide 29 mmol/L (22-30); Chloride 99 mmol/L (98-107); Cholesterol 105 mg/dL (<200); Glucose 72 mg/dL (74-99); HDL Cholesterol 21 mg/dL (40-60); LDL Cholesterol,Calculated 49 mg/dL (0-99); Magnesium 1.5 mg/dL (1.6-2.3); Potassium 3.8 mmol/L (3.5-5.1); Sodium 136 mmol/L (137-145); Triglycerides 174 mg/dL (<150)
[2018-01-26 08:02] LABS: HGB 10.3 gm/dL (13.0-17.5)
[2018-01-26 08:42] LABS: Band Neutrophils % 5 %; Lymphocytes # (M) 0.54 k/uL (1.0-4.8); Metamyelocytes # (M) 0.03 k/uL (0); Metamyelocytes % 1 %; Monocytes # (M) 0.72 k/uL (0-1.0); Myelocytes # (M) 0.03 k/uL (0); Myelocytes % 1 %; Neutrophils % (M) 53 %; Nucleated Red Blood Cells 1 /100 WBC (0-0); Total Cells Counted 200
[2018-01-26 08:43] LABS: Polychromasia Present
[2018-01-26] MEDS ORDERED: ASPIRIN 325 MG TAB PO SCH (09:00)
[2018-01-26] MEDS: ASPIRIN 81 MG PO SCH (09:37)
[2018-01-26] MEDS: CHOLECALCIFEROL 1,000 UNIT TAB PO SCH (09:37)
[2018-01-26] MEDS: CEFEPIME 2 GM in SODIUM CHLORIDE 0.9% 50 ML IVPB SCH ×3 (09:51→23:31)
[2018-01-26 11:57] LABS: Glucose,Whole Blood 86 mg/dL (75-99)
--- NOTE | 2018-01-26 13:54 | P.PN ---
Subjective Progress Note Date: 01/26/18 This is a 67-year-old gentleman who follows regularly at the [facility] in [place], he has known history of coronary artery disease with prior stenting in 2002, hypertension, hyperlipidemia, GERD, nicotine dependence, patient also has lung cancer for which he underwent radiation therapy, he was also undergoing chemotherapy, most recently he was told by his oncologist that no further chemotherapy would be administered as it does not seem to be taking effect. Patient was brought to the hospital via EMS with mental status changes. According to the daughter who gave me most of the history, she states that for the past day and a half prior to his admission she had been calling intact stenting him with no response. She went over to the house to find him sitting in a chair, she was unsure exactly of bilateral long he had been there, he was confused and had some mental status changes and for this reason she called EMS to have him brought here to the hospital. On EMS arrival, his blood sugar was in the 40 range, it was repeated after giving glucose and came up to 120. Pulse ox 70-80% on room air. The pressure on arrival here 112/58 with a heart rate in the 80s, 97% on 4 L of oxygen. EKG on arrival here showed a sinus tachycardia with a right bundle branch block pattern. Laboratory data, white blood cell count 3.3, 1.6 this morning, hemoglobin 8.2 on arrival, 6.8 this morning. Platelet count 183. Sodium 132, potassium 4.1 on arrival, 3.1 this morning. BUN 19, creatinine 0.45. Troponin 0.19, 0.17, 0.13. At the time of my examination, patient has just recently been placed into her room on 6 E., he is receiving a blood transfusion. He only intermittently is answering questions, he is quite irritated and generally feeling tired and not well. Patient was in the hospital in September of this year with a pneumonia, and echocardiogram with Doppler study was performed at that time which revealed an ejection fraction of 55-60%. 01/26/2018 Patient seen and examined this morning, very tired, will open eyes to verbal stimuli. Blood pressure 100/50 with a heart rate in the 80s, 94% on 3 L of oxygen. White blood cell count 3.0, hemoglobin 10.3 today, platelet count 214. Sodium 136, potassium 3.8, BUN 12, creatinine 0.42. Magnesium 1.5. Discussion is going to be made with the patient and his family today regarding hospice. Objective - Vital Signs Vital signs: Vital Signs Temp 97 F L 01/26/18 11:37 Pulse 84 01/26/18 11:43 Resp 18 01/26/18 11:43 BP 100/56 01/26/18 11:37 Pulse Ox 94 L 01/26/18 11:37 Intake & Output 01/25/18 01/26/18 01/26/18 18:59 06:59 18:59 Intake Total 487.028 80 Output Total 325 0 Balance 162.028 80 Weight 58.3 kg Intake: Intake, IV Titration 177.028 Amount Heparin Sodium,Porcine/ 177.028 D5w Pmx 25,000 unit In Dextrose/Water 1 500ml. bag @ 12 UNITS/KG/HR 16. 32 mls/hr IV .Q24H [facility] Rx #:[id number] Oral 80 Blood Product 310 Rc As-1 Unit 310 [id number] Output: Urine 325 0 Other: Voiding Method Urinal Urinal Urinal Diaper Diaper Diaper # Voids 1 2 - Exam PHYSICAL EXAMINATION: GENERAL: 67-year-old gentleman appears much older than his stated age , weak HEENT: Head is atraumatic, normocephalic. Pupils equal, round. Sclera anicteric. Conjunctiva are clear. Mucous membranes of the mouth are moist. Neck is supple. There is no elevated jugular venous pressure.] bruit is heard. HEART EXAMINATION: Heart S1, S2 normal. No murmur or gallop heard. CHEST EXAMINATION: Lungs reveal scattered coarse rhonchi and wheezing throughout. ABDOMEN: Soft, nontender. Bowel sounds are heard. No organomegaly noted. EXTREMITIES: 2+ peripheral pulses with no evidence of peripheral edema and no calf tenderness noted. NEUROLOGIC [patient is sleepy, arouses to verbal stimuli. - Labs CBC & Chem 7: 01/26/18 06:53 01/26/18 06:53 Labs: Abnormal Lab Results - Last 24 Hours (Table) 01/25/18 01/25/18 01/25/18 Range/Units 10:51 14:38 16:07 WBC (3.8-10.6) k/uL RBC (4.30-5.90) m/uL Hgb (13.0-17.5) gm/dL Hct (39.0-53.0) % RDW (11.5-15.5) % Lymphocytes # (Manual) (1.0-4.8) k/uL Metamyelocytes # (Man) (0) k/uL Myelocytes # (Manual) (0) k/uL Nucleated RBCs (0-0) /100 WBC Sodium (137-145) mmol/L Creatinine (0.66-1.25) mg/dL Glucose (74-99) mg/dL POC Glucose (mg/dL) 118 H 118 H (75-99) mg/dL Magnesium (1.6-2.3) mg/dL Triglycerides (<150) mg/dL HDL Cholesterol (40-60) mg/dL Crossmatch See Detail 01/25/18 01/26/18 01/26/18 Range/Units 20:45 06:53 06:53 WBC 3.0 L (3.8-10.6) k/uL RBC 3.35 L (4.30-5.90) m/uL Hgb 10.3 L D (13.0-17.5) gm/dL Hct 32.1 L (39.0-53.0) % RDW 22.0 H (11.5-15.5) % Lymphocytes # (Manual) 0.54 L (1.0-4.8) k/uL Metamyelocytes # (Man) 0.03 H (0) k/uL Myelocytes # (Manual) 0.03 H (0) k/uL Nucleated RBCs 1 H (0-0) /100 WBC Sodium 136 L (137-145) mmol/L Creatinine 0.42 L (0.66-1.25) mg/dL Glucose 72 L (74-99) mg/dL POC Glucose (mg/dL) 107 H (75-99) mg/dL Magnesium 1.5 L (1.6-2.3) mg/dL Triglycerides 174 H (<150) mg/dL HDL Cholesterol 21 L (40-60) mg/dL Crossmatch Microbiology - Last 24 Hours (Table) 01/25/18 10:51 Blood Culture - Preliminary Blood No Growth after 24 hours Assessment and Plan Plan: Assessment and plan #1 mental status changes #2 stage IV lung cancer, status post radiation, most recently patient's chemotherapy was discontinued by his oncologist. Patient did have a metastases noted to the liver and adrenal gland on most recent admission #3 anemia, hemoglobin down to 6.8, patient currently receiving a blood transfusion #4 known history of coronary artery disease with prior stent placement #5 nicotine dependence #6 hyperlipidemia #7 abnormal troponins, likely secondary to oxygen supply and demand mismatch Plan From cardiology's perspective, we will follow this patient along with you now on an as-needed basis only, please don't hesitate to call with any questions. DNP note has been reviewed, I agree with a documented findings and plan of care. Patient was seen and examined.
[2018-01-26] MEDS: MAGNESIUM SULFATE-D5W PMX 1 GM in DEXTROSE/WATER 1 100ML.BAG IVPB SCH ×2 (14:09→14:42)
[2018-01-26] MEDS: HYDROcodone/APAP 10-325MG 1 EACH TAB PO PRN ×2 (14:58→18:43)
--- NOTE | 2018-01-26 15:35 | P.PN ---
Subjective 67-year-old man came in hypoxemic. Patient has advanced non-small cell lung cancer. Patient the received palliative chemotherapy. I did order sigala CAT scan which did not show any pulmonary embolism but showed extensive spread of the cancer. I had extensive discussion with the patient and then family members regarding his overall goals of care patient is presently DO NOT RESUSCITATE I did discuss with him regarding hospice and patient is agreeable for hospice and palliative care I consulted the hospice services. Also discussed same thing with the family members daughter. Although patient respiratory status did improve from yesterday. Objective - Vital Signs Vital signs: Vital Signs Temp 97 F L 01/26/18 11:37 Pulse 84 01/26/18 11:43 Resp 18 01/26/18 11:43 BP 100/56 01/26/18 11:37 Pulse Ox 94 L 01/26/18 11:37 Intake & Output 01/25/18 01/26/18 01/26/18 18:59 06:59 18:59 Intake Total 487.028 80 Output Total 325 0 Balance 162.028 80 Weight 58.3 kg Intake: Intake, IV Titration 177.028 Amount Heparin Sodium,Porcine/ 177.028 D5w Pmx 25,000 unit In Dextrose/Water 1 500ml. bag @ 12 UNITS/KG/HR 16. 32 mls/hr IV .[facility] Rx #:[id number] Oral 80 Blood Product 310 Rc As-1 Unit 310 [id number] Output: Urine 325 0 Other: Voiding Method Urinal Urinal Urinal Diaper Diaper Diaper # Voids 1 2 - Exam PHYSICAL EXAMINATION: GENERAL: The patient is alert and oriented x3, not in any acute distress. 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 EOMI. No scleral icterus. No conjunctival pallor. Normocephalic, atraumatic. No pharyngeal erythema. No thyromegaly. CARDIOVASCULAR: S1 and S2 present. No murmurs, rubs, or gallops. PULMONARY: Chest is clear to auscultation, no wheezing or crackles. ABDOMEN: Soft, nontender, nondistended, normoactive bowel sounds. No palpable organomegaly. MUSCULOSKELETAL: No joint swelling or deformity. EXTREMITIES: No cyanosis, clubbing, or pedal edema. NEUROLOGICAL: No focal deficits but patient does have severe generalized weakness SKIN: No rashes. - Labs CBC & Chem 7: 01/26/18 06:53 01/26/18 06:53 Labs: Abnormal Lab Results - Last 24 Hours (Table) 01/25/18 01/25/18 01/25/18 Range/Units 10:51 16:07 20:45 WBC (3.8-10.6) k/uL RBC (4.30-5.90) m/uL Hgb (13.0-17.5) gm/dL Hct (39.0-53.0) % RDW (11.5-15.5) % Lymphocytes # (Manual) (1.0-4.8) k/uL Metamyelocytes # (Man) (0) k/uL Myelocytes # (Manual) (0) k/uL Nucleated RBCs (0-0) /100 WBC Sodium (137-145) mmol/L Creatinine (0.66-1.25) mg/dL Glucose (74-99) mg/dL POC Glucose (mg/dL) 118 H 107 H (75-99) mg/dL Magnesium (1.6-2.3) mg/dL Triglycerides (<150) mg/dL HDL Cholesterol (40-60) mg/dL Crossmatch See Detail 01/26/18 01/26/18 Range/Units 06:53 06:53 WBC 3.0 L (3.8-10.6) k/uL RBC 3.35 L (4.30-5.90) m/uL Hgb 10.3 L D (13.0-17.5) gm/dL Hct 32.1 L (39.0-53.0) % RDW 22.0 H (11.5-15.5) % Lymphocytes # (Manual) 0.54 L (1.0-4.8) k/uL Metamyelocytes # (Man) 0.03 H (0) k/uL Myelocytes # (Manual) 0.03 H (0) k/uL Nucleated RBCs 1 H (0-0) /100 WBC Sodium 136 L (137-145) mmol/L Creatinine 0.42 L (0.66-1.25) mg/dL Glucose 72 L (74-99) mg/dL POC Glucose (mg/dL) (75-99) mg/dL Magnesium 1.5 L (1.6-2.3) mg/dL Triglycerides 174 H (<150) mg/dL HDL Cholesterol 21 L (40-60) mg/dL Crossmatch Microbiology - Last 24 Hours (Table) 01/25/18 10:51 Blood Culture - Preliminary Blood No Growth after 24 hours Assessment and Plan Plan: -Altered mental status: Which resolved , may be metabolic encephalopathy. Patient is being treated with cefepime for pneumonia patient does not appear to have any pneumonia on the CAT scan patient has significant spreading of lung cancer. 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 -Mildly elevated troponins: Secondary to hypoxemia -Hypotension secondary to severe intravascular depletion improved with IV fluids -Hyponatremia hypervolemic hyponatremia improved now -Dizziness secondary to severe anemia, and was vascular volume depletion -Coronary artery disease -Gastroesophageal reflux disease -Hyperlipidemia -History of non-small cell lung cancer receiving palliative chemotherapy. CODE STATUS DO NOT RESUSCITATE. [place] after risks and discussion the patient' s family members hospice services were consulted and family is leaning towards hospice
[2018-01-26 16:01] LABS: Appearance,Urine Clear (Clear); Bilirubin,Urine Negative (Negative); Blood,Urine Negative (Negative); Color,Urine Yellow; Glucose,Urine (UA) Negative (Negative); Ketones,Urine Negative (Negative); Leukocyte Esterase,Urine Negative (Negative); Nitrite,Urine Negative (Negative); Protein,Urine Trace (Negative); Specific Gravity,Urine 1.019 (1.001-1.035); Urobilinogen,Urine <2.0 mg/dL (<2.0)
--- NOTE | 2018-01-26 16:47 | P.CONS ---
History of Present Illness - Reason for Consult Consult date: 01/26/18 Metastatic Lung Cancer - Chief Complaint Mental Status Changes - History of Present Illness Mr Solitario is a patient of Dr. Fisher'nimisha who originally presented with worsening left rib pain,of several months duration,had a CXR on 06/20/2017 which revealed a suspicious left lung mass,CT scan of chest/upper abdomen on 07/01/2017 revealed bilateral lung nodules,left hilar and mediastinal nodes,sclerotic lesion at T11,very large bilateral adrenal masses,(at least 8.3cm on the left and 2 cm on the right),CT guided biopsy of adrenal mass was not diagnostic,then he had a CT guided biopsy of left lung mass on 08/23/2017 was positive for non small cell lung carcinoma,favoring squamous cell type. Brain MRI was negative for metastatic disease. EGFR,ALK were negative,PDL-1 was low expression (3%).additional molecular testing could not be done On 09/21/2017,spiral CT scan of chest (done to r/o PE),revealed 10.6x6.6cm RUL mass,multiple lung nodules,left hilar nodes (largest 3.1cm) and subcarinal nodes. He completed palliative XRT to very large and painful left adrenal mass second week of September/2017 He started abraxane/carboplatin on 10/07/2017. Repeat CT scan of chest/abdomen/pelvis on 11/29/2016 revealed improvement in his disease. He was having difficult time tolerating the last two cycles of chemotherapy and his chemo was placed on hold on January 18, plan was to proceed with another CT scan for restaging and discuss options, goals of care at that time. However he presented on to [facility] with increased weakness and mental status changes. He was found to be hypoxic on admission. His Hemoglobin was 6.7 on admission. He did receive transfusion of PRBC. He was seen in follow-up today, his CT scans have been reviewed and there is progression noted. He was not very pleasant today during interaction. He did not respond appropriately and repeatedly "fell asleep" during our conversation. I attempted to discuss code status with him as well as goals of care. We discussed that goals of care are strictly palliative as he does have incurable disease. He did not acknowledge me discussing CT and goals with him. I asked him if there was family I could speak with to help make decisions and he stated I could speak with his daughter or son. I spoke to daughter Shirley today. She was concerned with his changes in mental status and relayed to me that "this was not her father". She thought he seemed extremely agitated and confused. She understands goals of care as incurable and palliative in nature. She understands the resonable options to discuss regarding code status, but at this time he will not speak to her as he appears angry with her for recommending a nicotine patch. Review of Systems Difficult to assess related to his current mental status ROS unobtainable: due to mental status Past Medical History Past Medical History: Coronary Artery Disease (CAD), Cancer, Chest Pain / Angina , GERD/Reflux, Hyperlipidemia, Pneumonia Additional Past Medical History / Comment(s): L lung cancer with metastsis- received radiation last 09/21/17 and is receiving chemo-last time 01/13/18, constipation, pt states hx of hyperlipidemia but recently taken of RX, constipation. History of Any Multi-Drug Resistant Organisms: None Reported Past Surgical History: Heart Catheterization With Stent, Tonsillectomy Additional Past Surgical History / Comment(s): L lung bx x 2, bilateral inguinal hernia repairs, bilateral cataract removals with lens. Past Anesthesia/Blood Transfusion Reactions: No Reported Reaction Date of Last Stent Placement:: 2002 Smoking Status: Current every day smoker - Past Family History Father Family Medical History: Diabetes Mellitus Mother Additional Family Medical History / Comment(s): Mother had lupus. Medications and Allergies Home Medications Medication Instructions Recorded Confirmed Type Albuterol Sulfate [Proair Hfa] 1 - 2 puff INHALATION RT-Q6H PRN 09/21/17 History Aspirin 81 mg PO DAILY 09/21/17 01/24/18 History Cholecalciferol [Vitamin D3] 1,000 unit PO DAILY 09/21/17 01/24/18 History HYDROcodone/APAP 10-325MG [[place] 1 tab PO Q4H PRN 09/21/17 01/24/18 History 10-325] Meloxicam [Mobic] 15 mg PO DAILY PRN 09/21/17 01/24/18 History Nitroglycerin Sl Tabs [Nitrostat] 0.4 mg SUBLINGUAL Q5M PRN 09/21/17 01/24/18 History oxyCODONE-APAP 5-325MG [Percocet 1 tab PO Q4HR PRN 01/24/18 01/24/18 History 5-325 mg] Allergies Allergy/AdvReac Type Severity Reaction Status Date / Time No Known Allergies Allergy Verified 01/24/18 22:27 Physical Exam Vitals: Vital Signs Temp Pulse Pulse Pulse Resp BP BP 01/26/18 11:43 84 18 01/26/18 11:42 80 01/26/18 11:37 97 F L 84 18 100/56 01/26/18 11:32 80 01/26/18 09:30 97.1 F L 88 16 108/58 01/26/18 08:00 88 16 01/26/18 07:42 84 01/26/18 07:29 84 01/26/18 03:49 98.4 F 88 20 96/48 01/26/18 03:48 78 85 20 01/26/18 00:00 98.8 F 78 85 20 93/59 01/25/18 20:00 98.0 F 78 82 18 90/54 01/25/18 19:59 80 01/25/18 19:47 78 01/25/18 17:00 96.9 F L 82 18 84/53 01/25/18 14:53 97.9 F 79 18 98/56 Pulse Ox 01/26/18 11:43 01/26/18 11:42 01/26/18 11:37 94 L 01/26/18 11:32 01/26/18 09:30 94 L 01/26/18 08:00 01/26/18 07:42 01/26/18 07:29 01/26/18 03:49 90 L 01/26/18 03:48 01/26/18 00:00 88 L 01/25/18 20:00 90 L 01/25/18 19:59 01/25/18 19:47 97 01/25/18 17:00 98 01/25/18 14:53 98 Intake and Output 01/25/18 01/26/18 01/26/18 22:59 06:59 14:59 Intake Total 310 80 Output Total 325 0 Balance -15 80 Intake: Oral 80 Blood Product 310 Rc As-1 Unit 310 [id number] Output: Urine 325 0 Other: Voiding Method Urinal Urinal Urinal Diaper Diaper Diaper # Voids 1 2 Weight 58.3 kg - Constitutional General appearance: no acute distress, thin - EENT Eyes: EOMI, dentition normal ENT: NA/AT, normal oropharynx - Neck supple, trachea midline Neck: normal ROM - Respiratory Respiratory: bilateral: diminished (No increased effort, diminished bibasilar), wheezing (Expiratory wheezes) - Cardiovascular Rhythm: regular Heart sounds: normal: S1, S2 - Gastrointestinal General gastrointestinal: normal bowel sounds, soft, tenderness - Integumentary Integumentary: pale - Neurologic Neurologic: CNII-XII intact - Musculoskeletal Musculoskeletal: generalized weakness, strength equal bilaterally - Psychiatric Flat Affect, inappropriate responses to discussion, high agitation Psychiatric: A&O x's 3 Results CBC & Chem 7: 01/26/18 06:53 01/26/18 06:53 Labs: Abnormal Lab Results - Last 24 Hours (Table) 01/25/18 01/25/18 01/25/18 Range/Units 10:51 14:38 16:07 WBC (3.8-10.6) k/uL RBC (4.30-5.90) m/uL Hgb (13.0-17.5) gm/dL Hct (39.0-53.0) % RDW (11.5-15.5) % Lymphocytes # (Manual) (1.0-4.8) k/uL Metamyelocytes # (Man) (0) k/uL Myelocytes # (Manual) (0) k/uL Nucleated RBCs (0-0) /100 WBC Sodium (137-145) mmol/L Creatinine (0.66-1.25) mg/dL Glucose (74-99) mg/dL POC Glucose (mg/dL) 118 H 118 H (75-99) mg/dL Magnesium (1.6-2.3) mg/dL Triglycerides (<150) mg/dL HDL Cholesterol (40-60) mg/dL Crossmatch See Detail 01/25/18 01/26/18 01/26/18 Range/Units 20:45 06:53 06:53 WBC 3.0 L (3.8-10.6) k/uL RBC 3.35 L (4.30-5.90) m/uL Hgb 10.3 L D (13.0-17.5) gm/dL Hct 32.1 L (39.0-53.0) % RDW 22.0 H (11.5-15.5) % Lymphocytes # (Manual) 0.54 L (1.0-4.8) k/uL Metamyelocytes # (Man) 0.03 H (0) k/uL Myelocytes # (Manual) 0.03 H (0) k/uL Nucleated RBCs 1 H (0-0) /100 WBC Sodium 136 L (137-145) mmol/L Creatinine 0.42 L (0.66-1.25) mg/dL Glucose 72 L (74-99) mg/dL POC Glucose (mg/dL) 107 H (75-99) mg/dL Magnesium 1.5 L (1.6-2.3) mg/dL Triglycerides 174 H (<150) mg/dL HDL Cholesterol 21 L (40-60) mg/dL Crossmatch Microbiology - Last 24 Hours (Table) 01/25/18 10:51 Blood Culture - Preliminary Blood No Growth after 24 hours Assessment and Plan Plan: Assessment and Recommendations: 1. 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 She is very concerned about his mental status and stated this is not her father. We will check MRI of the brain, if metastatic disease per daughter patient will agree to change code status and consider options of hospice, although at this time unable to obtain an appropriate response regarding his understanding and thoughts on further palliative measures. - He will follow-up with Dr. Fisher after discharge as well to further discuss - Prognosis is gaurded 2. Acute Hypoxic Event with Chronic Lung Disease and metastatic Lung Cancer - COntinue supportive care 3. Altered mental status - likely secondary to underlying hypoxia, although metastatic disease resonable to consider, Await MRI 4. Normocytic Anemia - Secondary to recent chemotherapy - transfusion PRBC if less than 7 5. Leukopenia - Stable - Secondary to chemotherapy Physician Attestation: I have completed the full History and physical of this patient and agree with above dictation by Araceli Yang NP. Dictated as a scribe.
[2018-01-26 16:49] LABS: Glucose,Whole Blood 117 mg/dL (75-99)
[2018-01-26 20:36] LABS: Glucose,Whole Blood 146 mg/dL (75-99)
[2018-01-26 23:04] VITALS: TEMP 98.8
[2018-01-27] MEDS: SODIUM CHLORIDE 0.9% 1,000 ML IV SCH ×2 (04:39→12:34)
[2018-01-27] MEDS: HYDROcodone/APAP 10-325MG 1 EACH TAB PO PRN ×2 (05:12→11:17)
[2018-01-27] MEDS: CEFEPIME 2 GM in SODIUM CHLORIDE 0.9% 50 ML IVPB SCH (07:39)
[2018-01-27] MEDS: ASPIRIN 81 MG PO SCH (07:40)
[2018-01-27] MEDS: CHOLECALCIFEROL 1,000 UNIT TAB PO SCH (07:40)
[2018-01-27] MEDS: IPRATROPIUM-ALBUTEROL 3 ML NEB INHALATION SCH ×3 (08:19→16:23)
[2018-01-27 12:43] VITALS: BP 94/51; PULSE 69; RESP 17
--- NOTE | 2018-01-27 13:12 | P.DS ---
Providers Date of admission: 01/25/18 00:59 Attending physician: Jossy Workman Consults: 01/25/18 00:58 Consult Physician Routine Consulting Provider: Willard Fisher Consult Reason/Comments: Stage IV lung cancer Do you want consulting provider notified?: Yes 01/25/18 00:59 Consult Physician Urgent Consulting Provider: Xochilt Jeffries Consult Reason/Comments: Non-STEMI, metastatic stage IV lung cancer Do you want consulting provider notified?: Yes Primary care physician: [facility] Course: 67-year-old man came in hypoxemic. Patient has advanced non-small cell lung cancer. Patient the received palliative chemotherapy. I did order sigala CAT scan which did not show any pulmonary embolism but showed extensive spread of the cancer. I had extensive discussion with the patient and then family members regarding his overall goals of care patient is presently DO NOT RESUSCITATE I did discuss with him regarding hospice and patient is agreeable for hospice and palliative care I consulted the hospice services. Also discussed same thing with the family members daughter. Although patient respiratory status did improve from yesterday. 01/27/2018 Patient is bit more confused today patient appears to have an of confusion patient may have metastatic disease of his lung cancer to the brain I discussed with the patient is today and the today as well as family yesterday and today. Patient is made hospice will be discharged today to a facility with hospice. MRI was ordered by oncology services which will be discontinued as patient is hospice at this time discussed same thing with oncology on phone and oncology is agreeable with hospice. PHYSICAL EXAMINATION: GENERAL: The patient is alert , waxing and waning mental status and occasional confusional episodes. HEENT: Pupils are round and equally reacting to light. EOMI. No scleral icterus. No conjunctival pallor. Normocephalic, atraumatic. No pharyngeal erythema. No thyromegaly. CARDIOVASCULAR: S1 and S2 present. No murmurs, rubs, or gallops. PULMONARY: Chest is clear to auscultation, no wheezing or crackles. ABDOMEN: Soft, nontender, nondistended, normoactive bowel sounds. No palpable organomegaly. MUSCULOSKELETAL: No joint swelling or deformity. EXTREMITIES: No cyanosis, clubbing, or pedal edema. NEUROLOGICAL: No focal deficits but patient does have severe generalized weakness SKIN: No rashes. 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 Improved now -Mildly elevated troponins: Secondary to hypoxemia -Hypotension secondary to severe intravascular depletion improved with IV fluids -Hyponatremia hypervolemic hyponatremia improved now -Dizziness secondary to severe anemia, and was vascular volume depletion, improved now -Coronary artery disease -Gastroesophageal reflux disease -Hyperlipidemia -History of non-small cell lung cancer completed palliative chemotherapy., Worsening and advanced metastatic disease CODE STATUS DO NOT RESUSCITATE. Patient is being discharged today to a facility with hospice. Patient Condition at Discharge: Stable Plan - Discharge Summary Discharge Rx Participant: No New Discharge Prescriptions: No Action Cholecalciferol [Vitamin D3] 1,000 unit PO DAILY Nitroglycerin Sl Tabs [Nitrostat] 0.4 mg SUBLINGUAL Q5M PRN PRN Reason: Chest Pain HYDROcodone/APAP 10-325MG [[place] 10-325] 1 tab PO Q4H PRN PRN Reason: Pain Albuterol Sulfate [Proair Hfa] 1 - 2 puff INHALATION RT-Q6H PRN PRN Reason: Shortness Of Breath Meloxicam [Mobic] 15 mg PO DAILY PRN PRN Reason: Pain Aspirin 81 mg PO DAILY oxyCODONE-APAP 5-325MG [Percocet 5-325 mg] 1 tab PO Q4HR PRN PRN Reason: Pain Discharge Medication List Albuterol Sulfate [Proair Hfa] 1 - 2 puff INHALATION RT-Q6H PRN 09/21/17 [ History] Aspirin 81 mg PO DAILY 09/21/17 [History] Cholecalciferol [Vitamin D3] 1,000 unit PO DAILY 09/21/17 [History] HYDROcodone/APAP 10-325MG [[place] 10-325] 1 tab PO Q4H PRN 09/21/17 [History] Meloxicam [Mobic] 15 mg PO DAILY PRN 09/21/17 [History] Nitroglycerin Sl Tabs [Nitrostat] 0.4 mg SUBLINGUAL Q5M PRN 09/21/17 [History] oxyCODONE-APAP 5-325MG [Percocet 5-325 mg] 1 tab PO Q4HR PRN 01/24/18 [History] Follow up Appointment(s)/Referral(s): [facility],Clinic [Primary Care Provider] - 1-2 days
== END 2018-01-27 16:29 | disposition hospice, inpatient (51) | DRG 70 ==
LOC: EC 21:31 → 6SEL 01-25 00:59
PROVIDERS: ADMIT Internal Medicine; ATTEND Internal Medicine
PROC: 30233N1 Transfusion of Nonautologous Red Blood Cells into Peripheral Vein, Percutaneous Approach (ICD-10-PCS; principal; 2018-01-25)
DX: G93.41 Metabolic encephalopathy (principal); J18.9 Pneumonia, unspecified organism; C34.90 Malignant neoplasm of unspecified part of unspecified bronchus or lung; C79.31 Secondary malignant neoplasm of brain; E87.1 Hypo-osmolality and hyponatremia; R64 Cachexia; C78.7 Secondary malignant neoplasm of liver and intrahepatic bile duct; C79.70 Secondary malignant neoplasm of unspecified adrenal gland; D64.81 Anemia due to antineoplastic chemotherapy; D70.1 Agranulocytosis secondary to cancer chemotherapy; T45.1X5A Adverse effect of antineoplastic and immunosuppressive drugs, initial encounter; E78.5 Hyperlipidemia, unspecified; E86.9 Volume depletion, unspecified; E87.6 Hypokalemia; F17.200 Nicotine dependence, unspecified, uncomplicated; I10 Essential (primary) hypertension; R74.8 Abnormal levels of other serum enzymes; I25.10 Atherosclerotic heart disease of native coronary artery without angina pectoris; I45.10 Unspecified right bundle-branch block; J43.9 Emphysema, unspecified; K21.9 Gastro-esophageal reflux disease without esophagitis; R09.02 Hypoxemia; Z68.21 Body mass index [BMI] 21.0-21.9, adult; Z51.5 Encounter for palliative care; Z66 Do not resuscitate; Z79.82 Long term (current) use of aspirin; Z83.2 Family history of diseases of the blood and blood-forming organs and certain disorders involving the immune mechanism; Z83.3 Family history of diabetes mellitus; Z92.3 Personal history of irradiation; Z95.5 Presence of coronary angioplasty implant and graft; Z87.01 Personal history of pneumonia (recurrent); R53.1 Weakness; I95.9 Hypotension, unspecified; Z98.42 Cataract extraction status, left eye; Z98.41 Cataract extraction status, right eye; Z96.1 Presence of intraocular lens
CPT/HCPCS: 36415; 71046; 71260; 74177; 80048; 80053; 80061; 81003; 82550; 82553; 83735; 84484; 85025; 85610; 85730; 86850; 86900; 86901; 86920; 87040; 87086; 93005; 94640; 94760; 96361; 96365; 96366; 96368; 96375; 96376; 99291